=== PATIENT | female | born 1985 | race Caucasian/White ===

== ENCOUNTER 2018-07-26 15:34 | Emergency (ER) | payer OTHER, SELFPAY ==
[2018-07-26 15:42] VITALS: BP 123/87; PULSE 88; RESP 15; TEMP 36.6; O2SAT 99; BMI 33.9
--- NOTE | 2018-07-26 16:24 | ED.NAVMDI ---
HPI - Nausea/Vomiting/Diarrhea General Chief complaint: Nausea/Vomiting/Diarrhea Stated complaint: DIARRHEA 2 WKS WEAKNESS Time Seen by Provider: 07/26/18 16:24 Source: patient Mode of arrival: ambulatory Limitations: no limitations History of Present Illness HPI Narrative: 32-year-old nonsmoker presents with a chief complaint of 2 weeks of profuse watery diarrhea. She has become dizzy weak and lightheaded. She denies any fever chills nor blood in her stool. She denies any nausea or vomiting. She denies any recent travel, use of antibiotics, exposure to bad food or ill persons. She reports up to 5/6 explosive loose stools daily. She denies any history of the same MD complaint: diarrhea Onset (ago): day(s) Description of Diarrhea: watery Associated Abdominal Pain: No Severity: moderate Exacerbating factors: none Related Data Home Medications Medication Instructions Recorded Confirmed ibuprofen [Advil] 600 mg PO .ONCE 07/26/18 07/26/18 Previous Rx's Medication Instructions Recorded trazodone 50 mg tablet 50 mg PO HS #90 tab 04/15/18 sertraline 50 mg tablet 50 mg PO QDAY #90 tab 07/08/18 Allergies Allergy/AdvReac Type Severity Reaction Status Date / Time diphenhydramine Allergy Unknown Verified 07/26/18 15:42 [DIPHENHYDRAMINE] Review of Systems Review of Systems All systems reviewed & are unremarkable except as noted in HPI and below Constitutional Denies chills, Denies fever(s), Denies lethargy and Reports weakness Eyes Denies change in vision, Denies eye discharge, Denies irritation and Denies loss of vision ENT Ears, Nose, Mouth, and Throat: Denies change in voice, Denies neck pain and Denies sore throat Cardiovascular Denies chest pain, Denies irregular heart rhythm, Denies lightheadedness, Denies palpitations, Denies dyspnea, Denies dyspnea on exertion and Denies orthopnea Respiratory Denies cough, Denies dyspnea, Denies dyspnea on exertion and Denies wheezing Gastrointestinal Gastrointestinal: Denies abdominal pain, Denies change in bowel habits, Reports diarrhea, Denies nausea and Denies vomiting Genitourinary Denies hematuria, Denies flank pain, Denies urinary incontinence and Denies urinary urgency Musculoskeletal Denies neck pain Integumentary/Breasts Denies pruritus, Denies erythema, Denies rash and Denies wounds Neurologic Denies confusion, Denies loss of vision and Reports weakness Psychiatric Denies anxiety, Denies confusion, Denies depression, Denies homicidal ideation and Denies suicidal ideation Endocrine Denies palpitations Hematologic/Lymphatic Denies easy bruising Allergic/Immunologic Denies wheezing [facility] History Status post delivery (09/12/16) Family History Father Age: 60 Heart disease Social History Smoking Status: Current every day smoker Exam Narrative Exam Narrative: GENERAL: This is a well-nourished, well-developed patient, in mild distress. HEAD: Atraumatic. Normocephalic. No temporal or scalp tenderness. EYES: Pupils equal round and reactive. Extraocular motions intact. No scleral icterus. No injection or drainage. ENT: Nose without bleeding, purulent drainage or septal hematoma. Throat without erythema, tonsillar hypertrophy or exudate. Uvula midline. Airway patent. NECK: Trachea midline. No JVD or lymphadenopathy. Supple, nontender, no meningeal signs. CARDIOVASCULAR: Regular rate and rhythm without murmurs, gallops, or rubs. RESPIRATORY: Clear to auscultation. Breath sounds equal bilaterally. No wheezes, rales, or rhonchi. GASTROINTESTINAL: Abdomen soft, non-tender, nondistended. No hepato-splenomegaly, or palpable masses. No guarding. EXTREMITIES: No clubbing, cyanosis, or edema. No joint tenderness, effusion, or edema noted. BACK: Nontender without deformity or crepitance. No flank tenderness. NEURO: AOx3. SKIN: No rash or erythema. Initial Vital Signs Initial Vital Signs: Vital Signs Temperature 97.9 F 07/26/18 15:42 Pulse Rate 88 07/26/18 15:42 Respiratory Rate 15 07/26/18 15:42 Blood Pressure 123/87 07/26/18 15:42 Pulse Oximetry 99 07/26/18 15:42 Course Orders Ordered: ED Orders 07/26/18 16:46 Complete Blood Count AUTO DIFF Stat Comprehensive Metabolic Panel Stat Discontinued Medications Sodium Chloride (Normal Saline 0.9%) 1,000 mls @ 1,000 mls/hr IV BOLUS ONE Stop: 07/26/18 17:23 Last Admin: 07/26/18 16:45 Dose: 1,000 mls/hr Ondansetron HCl (Zofran) 4 mg IV NOW ONE Stop: 07/26/18 16:25 Last Admin: 07/26/18 17:31 Dose: Not Given Vital Signs - 8 hr 07/26/18 15:42 07/26/18 18:51 Temperature 97.9 F Pulse Rate 88 75 Respiratory Rate 15 14 Blood Pressure 123/87 Blood Pressure [Left Arm] 122/83 Pulse Oximetry 99 98 MDM - Nausea/Vomiting/Diarrhea Differential Diagnosis Likely traveler's diarrhea, food poisoning, gastroenteritis, clostridium difficile infection, drug-induced nausea and vomiting and dehydration Medical Records Attestation: I reviewed the patient's medical records. Lab Data Attestation: I reviewed the patient's lab results. Result diagrams: 07/26/18 16:46 07/26/18 16:46 Lab Results 07/26/18 07/26/18 Range/Units 16:46 16:46 WBC 11.5 H (4.5-11.0) X10^3/uL RBC 4.68 (4.0-5.2) X10^6/uL Hgb 13.0 (12.0-16.0) g/dL Hct 39.2 (36-46) % MCV 83.7 (80-100) fL MCH 27.8 (26-34) PG MCHC 33.2 (30-36) % RDW 14.3 (11.6-14.8) % Plt Count 285 (150-400) X10^3/uL Neut % (Auto) 62.3 (50-75) % Lymph % (Auto) 27.4 (25-40) % [place] % (Auto) 8.1 (3-14) % Eos % (Auto) 1.4 L (2-4) % Baso % (Auto) 0.8 (0-2) % Neut # (Auto) 7200 H (2252-9187) /uL Sodium 141 (137-145) mmol/L Potassium 3.9 (3.4-5.1) mmol/L Chloride 107 (98-107) mmol/L Carbon Dioxide 22 (22-32) mmol/L BUN 13 (7-17) mg/dL Creatinine 0.70 (0.52-1.04) mg/dL Estimated GFR > 60.0 (>60) mL/min BUN/Creatinine Ratio 18.6 (6-22) Glucose 92 (70-100) mg/dL Calcium 9.1 (8.4-10.2) mg/dL Total Bilirubin 0.3 (0.2-1.3) mg/dL AST 26 (14-36) IU/L ALT 39 (9-52) IU/L Alkaline Phosphatase 50 (38-126) U/L Total Protein 7.6 (6.3-8.2) g/dL Albumin 4.5 (3.5-5.0) g/dL Globulin 3.1 (1.7-4.1) g/dL Albumin/Globulin Ratio 1.5 (1.0-2.8) Urine Dip Bedside Urine Glucose Negative Bedside Urine Bilirubin - Negative Bedside Urine Ketone - Negative Urine Specific [place] 1.015 Bedside Urine Occult Blood - Negative Bedside Urine pH 6.5 Bedside Urine Urobilinogen - Negative Bedside Urine Nitrite - Negative Bedside Urine Leukocytes - Negative Esterase MDM Narrative Medical decision making narrative: C diff colitis considered as a possible etiology of her diarrhea however she produced no stool here in the department, had no fever or white count Given lack of ability to produce a specimen here, no white count, no fever, no blood, no recent travel or bad food the patient very unlikely has a diarrhea that would have a specific treatment. I did discuss with this patient the need to follow up with her primary provider to possibly obtain a stool culture for further characterization of her illness Discharge Plan Departure Patient Disposition: Home Clinical Impression: Diarrhea Discharge Date/Time: 07/26/18 18:58 Interventions: ED Discharge Assessment Last Done: 07/26/18 18:55 Instructions: Diarrhea Activity Restrictions/Additional Instructions: *You have been diagnosed with [ acute diarrhea] *What to do: * continue to take medications as directed *Follow up with your primary care provider in 2-3 days, call for an appointment. Let them know you were seen in the Emergency Department and that we ask that you be seen in follow up *Return to ER if you should have any new, worsening or concerning symptoms *Drink plenty of fluids with frequent small sips. *For the next 24 hours a clear liquid diet is advised. After that please employ a brat diet which would include bananas, rice, apples, toast. Prescriptions: No Action trazodone 50 mg tablet 50 mg PO HS Qty: 90 RF: 0 sertraline [Zoloft] 50 mg tablet 50 mg PO QDAY Qty: 90 RF: 0 ibuprofen [Advil] 200 mg Tablet 600 mg PO .ONCE RF: 0 Referrals: Estelita Barrera DO [Primary Care Provider] -
[2018-07-26] MEDS: SODIUM CHLORIDE 0.9% 1,000 ML 1000 ML IV (16:45)
[2018-07-26 16:57] LABS: Add Manual Diff / Slide Review NO; Basophils Percent Auto 0.8 % (0-2); Eosinophils Percent Auto 1.4 % (2-4); Hematocrit 39.2 % (36-46); Lymphocytes Percent Auto 27.4 % (25-40); Mean Corpuscular HGB Conc 33.2 % (30-36); Mean Corpuscular Hemoglobin 27.8 PG (26-34); Mean Corpuscular Volume 83.7 fL (80-100); Monocytes Percent Auto 8.1 % (3-14); Neutrophils Absolute Auto 7200 /uL (3000-5900); Neutrophils Percent Auto 62.3 % (50-75); Platelet Count 285 X10^3/uL (150-400); Red Blood Cell Count 4.68 X10^6/uL (4.0-5.2); Red Cell Distribution Width 14.3 % (11.6-14.8); White Blood Cell Count 11.5 X10^3/uL (4.5-11.0)
[2018-07-26 17:11] LABS: Alanine Aminotransferase 39 IU/L (9-52); Albumin 4.5 g/dL (3.5-5.0); Albumin Globulin Ratio 1.5 (1.0-2.8); Alkaline Phosphatase 50 U/L (38-126); Aspartate Aminotransferase 26 IU/L (14-36); BUN Creatinine Ratio 18.6 (6-22); Bilirubin Total 0.3 mg/dL (0.2-1.3); Blood Urea Nitrogen 13 mg/dL (7-17); Calcium 9.1 mg/dL (8.4-10.2); Carbon Dioxide 22 mmol/L (22-32); Chloride 107 mmol/L (98-107); Estimated Glomerular Filt Rate > 60.0 mL/min (>60); Globulin 3.1 g/dL (1.7-4.1); Glucose 92 mg/dL (70-100); HEMOLYSIS < 15 (0-50); Potassium 3.9 mmol/L (3.4-5.1); Sodium 141 mmol/L (137-145); Total Protein 7.6 g/dL (6.3-8.2)
[2018-07-26 18:51] VITALS: BP 122/83; PULSE 75; RESP 14; O2SAT 98
== END 2018-07-26 18:58 | disposition home or self-care (01) ==
PROVIDERS: Emergency Provider Emergency Medicine; Family Provider Family Medicine; PCP Family Medicine
DX: R19.7 Diarrhea, unspecified (principal)
CPT/HCPCS: 36591; 80053; 81003; 85025; 99282; 99284

== ENCOUNTER → 2018-11-29 16:36 | Outpatient (CLI) | payer OTHER, SELFPAY ==
--- NOTE | 2018-11-29 16:39 | DI.MRI.S_ITS ---
PROCEDURE: MR KNEE LT WO CON INDICATIONS: Left knee medial pain TECHNIQUE: Noncontrast sagittal PD fast spin echo and T2 fast spin echo with fat saturation, sagittal 3-D FLASH with fat saturation; coronal T1 spin echo and PD fast spin echo with fat saturation, and axial PD fast spin echo with fat saturation through the knee. COMPARISON: [facility], MR, KNEE WITHOUT CONTRAST, 08/30/2015, 7:40. [facility], CR, XR KNEE ARTHRITIC SERIES LT, 03/26/2018, 8:47. FINDINGS: Image quality: Excellent. Menisci: The medial and lateral menisci demonstrate normal morphology and internal signal. The meniscal root ligaments appear intact. Cruciate ligaments: Posterior cruciate ligament is intact. Posterior bowing of the anterior cruciate ligament has nearly resolved. Medial structures: The medial collateral ligament appears intact. Visualized portions of the pes anserinus tendons appear normal. No abnormal bursal fluid. Lateral structures: The lateral collateral ligament, long and short heads of the biceps femoris tendon appear intact. The popliteus tendon appears normal. Iliotibial band appears normal. Anterior structures: The quadriceps and patellar tendons appear intact. Patellar alignment is normal. No femoral trochlear dysplasia or ventral trochlear prominence. No edema in the infrapatellar fat pad. Bones and cartilage: No bone marrow contusions or fractures. Mild diffuse articular cartilage loss overlies the weightbearing aspects of the medial femoral condyle and medial tibial plateau. Joint space: There is a small knee joint effusion and a trace Diallo's cyst. Normal appearing synovial plicae are incidentally noted. IMPRESSION: 1. 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 2. Mild tricompartmental articular cartilage loss. 3. Small knee joint effusion. Trace Diallo's cyst. Dictated by: Rufus Pratt M.D. on 12/02/2018 at 8:43 Approved by: Rufus Pratt M.D. on 12/02/2018 at 8:48
== END ==
PROVIDERS: Family Provider Family Medicine; PCP Family Medicine; Visit Provider Orthopaedic Surgery
DX: S83.512A Sprain of anterior cruciate ligament of left knee, initial encounter (principal); M25.462 Effusion, left knee
CPT/HCPCS: 73721

== ENCOUNTER → 2018-12-31 10:00 | Outpatient (CLI) | payer OTHER, SELFPAY ==
[2018-12-31 11:21] LABS: Add Manual Diff / Slide Review NO; Basophils Absolute Auto 100 /uL (0-100); Basophils Percent Auto 0.7 % (0-2); Eosinophils Absolute Auto 100 /uL (0-450); Eosinophils Percent Auto 1.3 % (2-4); Hematocrit 39.8 % (36-46); Hemoglobin 13.4 g/dL (12.0-16.0); Lymphocytes Absolute Auto 3000 /uL (1100-4500); Lymphocytes Percent Auto 24.8 % (25-40); Mean Corpuscular HGB Conc 33.6 % (30-36); Mean Corpuscular Hemoglobin 28.5 PG (26-34); Mean Corpuscular Volume 84.7 fL (80-100); Monocytes Absolute Auto 700 /uL (0-900); Monocytes Percent Auto 6.3 % (3-14); Neutrophils Absolute Auto 8000 /uL (1500-7000); Neutrophils Percent Auto 66.9 % (50-75); Platelet Count 315 X10^3/uL (150-400); Red Cell Distribution Width 13.6 % (11.6-14.8); White Blood Cell Count 11.9 X10^3/uL (4.5-11.0)
[2018-12-31 12:05] LABS: Alanine Aminotransferase 44 IU/L (9-52); Albumin 4.4 g/dL (3.5-5.0); Albumin Globulin Ratio 1.4 (1.0-2.8); Alkaline Phosphatase 60 U/L (38-126); Aspartate Aminotransferase 25 IU/L (14-36); Bilirubin Total 0.2 mg/dL (0.2-1.3); Calcium 9.7 mg/dL (8.4-10.2); Carbon Dioxide 26 mmol/L (22-32); Chloride 104 mmol/L (98-107); Estimated Glomerular Filt Rate > 60.0 mL/min (>60); Globulin 3.1 g/dL (1.7-4.1); Glucose 101 mg/dL (70-100); HEMOLYSIS < 15 (0-50); Potassium 4.4 mmol/L (3.4-5.1); Sodium 139 mmol/L (137-145); Total Protein 7.5 g/dL (6.3-8.2)
[2018-12-31 12:21] LABS: BUN Creatinine Ratio 13.3 (6-22); Blood Urea Nitrogen 12 mg/dL (7-17)
[2018-12-31 15:01] LABS: Free T4, Direct Thyroxine 1.04 ng/dL (0.78-2.19)
[2018-12-31 15:15] LABS: Thyroid Stimulating Hormone 1.84 uIU/mL (0.47-4.68)
== END ==
PROVIDERS: PCP Family Medicine; Visit Provider Psychiatry & Neurology Psychiatry
DX: F32.9 Major depressive disorder, single episode, unspecified (principal)
CPT/HCPCS: 36415; 80053; 84439; 84443; 85025

== ENCOUNTER 2019-08-24 17:06 | Emergency (ER) | payer OTHER, SELFPAY ==
[2019-08-24 17:13] VITALS: TEMP 37.6
[2019-08-24 17:16] VITALS: BP 114/80; PULSE 94; RESP 20; O2SAT 100
--- NOTE | 2019-08-24 17:52 | DI.RAD.S_ITS ---
PROCEDURE: XR LUMBAR SPINE 2-3V INDICATIONS: lumbar pain TECHNIQUE: 3 views of the lumbar spine were acquired. COMPARISON: None. FINDINGS: Bones: 5 [id number] vertebrae are present. There is normal bony alignment. No vertebral body compression fractures. No suspicious bony lesions. Soft tissues: Overlying bowel gas pattern is normal. No suspicious soft tissue calcifications. An intrauterine device projects within the lower pelvis. IMPRESSION: Lumbar spine without acute radiographic abnormality. Dictated by: Juan Fitch M.D. on 08/24/2019 at 18:22 Approved by: Juan Fitch M.D. on 08/24/2019 at 18:23
[2019-08-24] MEDS: CYCLOBENZAPRINE 10 MG TABLET PO (18:03)
[2019-08-24] MEDS: KETOROLAC 60 MG/2 ML VIAL IM (18:07)
[2019-08-24 18:13] LABS: Bacteria Urine None Seen; WBC Urine None Seen (0-5/HPF)
[2019-08-24 18:20] VITALS: BP 128/94; PULSE 86; RESP 16; O2SAT 100
[2019-08-24 18:21] LABS: Amorphous Sediment Urine 3+; Culture Indicated Urine Cult Not Indicated; RBC Urine 0-1/HPF (0-5/HPF); Squamous Epithelial Cell Urine 1-5 /HPF (0-5/HPF)
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
[2019-08-24] MEDS: KETOROLAC 10MG PREPACK 1 BOTTLE MISC (19:27)
[2019-08-24] MEDS: CYCLOBENZAPRINE 10 MG PREPACK 1 BOTTLE MISC (19:27)
== END 2019-08-24 19:23 | disposition home or self-care (01) ==
PROVIDERS: Emergency Provider Nurse Practitioner Family; PCP Family Medicine
DX: M54.5 Low back pain (principal)
CPT/HCPCS: 72100; 81003; 81015; 96372; 99282; 99284; J1885

== ENCOUNTER → 2021-08-06 13:23 | Outpatient (CLI) | payer OTHER, SELFPAY ==
[2021-08-06 13:53] LABS: COVID19 -Nasal RAPID Negative (Negative)
== END ==
PROVIDERS: PCP Family Medicine; Visit Provider Nurse Practitioner Family
DX: Z20.822 Contact with and (suspected) exposure to COVID-19 (principal)
CPT/HCPCS: 87635

== ENCOUNTER → 2021-12-15 07:20 | Outpatient (CLI) | payer OTHER, SELFPAY ==
[2021-12-15 08:04] LABS: Alanine Aminotransferase 24 IU/L (<35); Albumin 4.4 g/dL (3.5-5.0); Albumin Globulin Ratio 1.4 (1.0-2.8); Alkaline Phosphatase 61 U/L (38-126); Aspartate Aminotransferase 21 IU/L (14-36); Bilirubin Total 0.4 mg/dL (0.2-1.3); Blood Urea Nitrogen 9 mg/dL (7-17); Calcium 8.9 mg/dL (8.4-10.2); Carbon Dioxide 22 mmol/L (22-32); Chloride 109 mmol/L (98-107); Estimated Glomerular Filt Rate > 60.0 mL/min (>60); Globulin 3.1 g/dL (1.7-4.1); Glucose 122 mg/dL (70-100); HEMOLYSIS < 15 (0-50); Potassium 3.9 mmol/L (3.4-5.1); Sodium 139 mmol/L (137-145); Total Protein 7.5 g/dL (6.3-8.2)
[2021-12-15 08:05] LABS: Lithium < 0.2 mmol/L (0.6-1.2)
== END ==
PROVIDERS: PCP Family Medicine; Referring Provider Psychiatry & Neurology Psychiatry; Visit Provider Psychiatry & Neurology Psychiatry
DX: F31.9 Bipolar disorder, unspecified (principal)
CPT/HCPCS: 36415; 80053; 80178

== ENCOUNTER → 2022-02-09 07:02 | Outpatient (CLI) | payer OTHER, SELFPAY ==
[2022-02-09 09:19] LABS: Lithium < 0.2 mmol/L (0.6-1.2)
[2022-02-09 21:11] LABS: Valproic Acid (Depakene) Total 22 ug/mL (50-100)
== END ==
PROVIDERS: PCP Family Medicine; Referring Provider Family Medicine; Visit Provider Psychiatry & Neurology Psychiatry
DX: F31.9 Bipolar disorder, unspecified (principal)
CPT/HCPCS: 36415; 80164; 80178

== ENCOUNTER → 2022-03-29 07:01 | Outpatient (CLI) | payer OTHER, SELFPAY ==
[2022-03-29 23:03] LABS: Valproic Acid (Depakene) Total 34 ug/mL (50-100)
== END ==
PROVIDERS: PCP Family Medicine; Referring Provider Psychiatry & Neurology Psychiatry; Visit Provider Psychiatry & Neurology Psychiatry
DX: F31.9 Bipolar disorder, unspecified (principal)
CPT/HCPCS: 36415; 80164

== ENCOUNTER → 2022-06-29 17:16 | Outpatient (CLI) | payer OTHER, SELFPAY ==
[2022-06-29 17:33] LABS: Pregnancy Test Urine Negative (Negative)
== END ==
PROVIDERS: PCP Family Medicine; Referring Provider Family Medicine; Visit Provider Family Medicine
DX: Z32.01 Encounter for pregnancy test, result positive (principal)
CPT/HCPCS: 81025

== ENCOUNTER → 2023-02-23 12:02 | Outpatient (CLI) | payer OTHER, SELFPAY ==
--- NOTE | 2023-02-23 | DI.MG.S_ITS ---
BILATERAL DIGITAL DIAGNOSTIC MAMMOGRAM 3D/2D: 02/23/2023 CLINICAL: Baseline. nipple discharge. No prior exams were available for comparison. Both breasts are heterogeneously dense, which may obscure small masses (category c / 51-75% glandular tissue). There is an oval focal asymmetry in the right breast at 11 o'clock middle depth. No other significant masses, calcifications, or other findings are seen in either breast. IMPRESSION: INCOMPLETE: NEEDS ADDITIONAL IMAGING EVALUATION The oval focal asymmetry in the right breast is indeterminate. A targeted ultrasound is recommended and will immediately follow. Based on the Tyrer Cuzick model (a risk assessment model) the patient's lifetime risk is 15.3% and her 10 year risk is 1.8%. According to the ACR, ACS, and NCCN guidelines, an annual breast MRI exam along with mammogram is recommended if the patient's lifetime risk is 20% or greater. This exam was interpreted at Station ID: [id number]. NOTE: For mammograms, a report in lay terms will be sent to the patient. Approximately 15% of breast malignancies will not be visualized mammographically. In the management of a palpable breast mass, a negative mammogram must not discourage biopsy of a clinically suspicious lesion. Electronically Signed By: Aakash Tavares M.D. slc/:02/23/2023 12:47:00 ACR BI-RADS Category 0: Incomplete [id number]
--- NOTE | 2023-02-23 | DI.US.S_ITS ---
LIMITED ULTRASOUND OF RIGHT BREAST: 02/23/2023 CLINICAL: Nipple discharge. Comparison is made to exam dated: 02/23/2023 mammogram - [facility]. Color flow and real-time ultrasound of the right breast 9-11 o'clock region were performed. James scale images of the real-time examination were reviewed. There is a 0.6 cm x 0.5 cm x 0.3 cm oval cyst in the right breast at 11 o'clock middle depth 3 cm from the nipple. This oval cyst is hypoechoic. This correlates with mammography findings. Color flow imaging demonstrates that there is no vascularity present. There also is a 0.5 cm x 0.3 cm x 0.2 cm oval cyst in the right breast at 9 o'clock middle depth 7 cm from the nipple. This oval cyst is hypoechoic with a well-defined boundary. This correlates as an incidental finding. Color flow imaging demonstrates that there is no vascularity present. IMPRESSION: PROBABLY BENIGN The 0.6 cm complicated cyst in the right breast at 11 o'clock middle depth is probably benign. The 0.5 cm complicated cyst in the right breast at 9 o'clock middle depth is probably benign. A follow-up mammogram and an ultrasound in 6 months is recommended to demonstrate stability. Exam findings were conveyed to the patient. Patient describes clear/greenish nipple discharge with expression with is typically benign. Patient is advised to monitor for significant change. Clinical follow-up as needed. This exam was interpreted at Station ID: [id number]. Electronically Signed By: Aakash Tavares M.D. slc/:02/23/2023 13:21:32 letter sent: Followup Recommended Ultrasound BI-RADS: 3 Probably benign
== END ==
LOC: MAMMO 12:03
PROVIDERS: PCP Registered Nurse; Referring Provider Registered Nurse; Visit Provider Registered Nurse
DX: N64.52 Nipple discharge (principal); R92.8 Other abnormal and inconclusive findings on diagnostic imaging of breast; N60.01 Solitary cyst of right breast
CPT/HCPCS: 76642; 77066; G0279

== ENCOUNTER 2023-08-07 16:54 | Emergency (ER) | payer OTHER, SELFPAY ==
[2023-08-07 16:58] VITALS: BP 149/112; PULSE 95; RESP 20; TEMP 37.1; O2SAT 97; BMI 39.9
--- NOTE | 2023-08-07 17:06 | DI.RAD.S_ITS ---
PROCEDURE: XR CHEST 1V INDICATIONS: chest pain TECHNIQUE: One view of the chest was acquired. COMPARISON: None. FINDINGS: Surgical changes and devices: None. Lungs and pleura: Lungs are clear. No pleural effusions or pneumothorax. Mediastinum: Mediastinal contours appear normal. Heart size is normal. Bones and chest wall: No suspicious bony lesions. Overlying soft tissues appear unremarkable. IMPRESSION: Portable chest within normal limits for age. Dictated by: Miranda Bruce M.D. on 08/07/2023 at 17:30 Approved by: Miranda Bruce M.D. on 08/07/2023 at 17:30
[2023-08-07] MEDS: ASPIRIN 81 MG CHEW TAB 324 MG PO (17:10)
[2023-08-07 17:24] LABS: Add Manual Diff / Slide Review NO; Basophils Absolute Auto 100 /uL (0-100); Basophils Percent Auto 1.3 % (0-2); Eosinophils Absolute Auto 100 /uL (0-450); Eosinophils Percent Auto 1.4 % (2-4); Hematocrit 42.4 % (36-46); Hemoglobin 14.6 g/dL (12.0-16.0); Lymphocytes Absolute Auto 3700 /uL (1100-4500); Lymphocytes Percent Auto 36.9 % (25-40); Mean Corpuscular HGB Conc 34.5 % (30-36); Mean Corpuscular Hemoglobin 29.2 PG (26-34); Mean Corpuscular Volume 84.6 fL (80-100); Monocytes Absolute Auto 800 /uL (0-900); Monocytes Percent Auto 8.5 % (3-14); Neutrophils Absolute Auto 5200 /uL (1500-7000); Neutrophils Percent Auto 51.9 % (50-75); Platelet Count 323 X10^3/uL (150-400); Red Blood Cell Count 5.01 X10^6/uL (4.0-5.2); Red Cell Distribution Width 12.9 % (11.6-14.8); White Blood Cell Count 9.9 X10^3/uL (4.5-11.0)
[2023-08-07 17:27] LABS: INR 1.1 (0.9-1.3); Prothrombin Time 12.1 SECONDS (10.1-12.7)
[2023-08-07 17:30] LABS: PTT Partial Thromboplastin Tim 31 SECONDS (26-36)
[2023-08-07 17:31] LABS: Alanine Aminotransferase 73 IU/L (<35); Albumin 4.8 g/dL (3.5-5.0); Albumin Globulin Ratio 1.5 (1.0-2.8); Alkaline Phosphatase 70 U/L (38-126); Aspartate Aminotransferase 37 IU/L (14-36); BUN Creatinine Ratio 13.6 (6-22); Bilirubin Total 0.6 mg/dL (0.2-1.3); Blood Urea Nitrogen 11 mg/dL (7-17); Calcium 9.6 mg/dL (8.4-10.2); Carbon Dioxide 22 mmol/L (22-32); Chloride 105 mmol/L (98-107); Creatine Kinase 127 U/L (30-135); Estimated Glomerular Filt Rate > 60 mL/min (>60); Globulin 3.3 g/dL (1.7-4.1); Glucose 100 mg/dL (70-100); HEMOLYSIS < 15 (0-50); Lipase 114 U/L (23-300); Magnesium 2.2 mg/dL (1.6-2.3); Potassium 3.9 mmol/L (3.4-5.1); Sodium 138 mmol/L (137-145); Total Protein 8.1 g/dL (6.3-8.2)
[2023-08-07 17:43] LABS: Troponin I < 0.012 ng/mL (0.01-0.034)
--- NOTE | 2023-08-07 18:38 | ED.CHESTPAIN ---
HPI - Chest Pain <Shen Dawkins PA-C - Last Filed: 08/07/23 19:02> General Chief Complaint: Chest Pain Stated Complaint: mid back to chest pain, lt arm also Time Seen by Provider: 08/07/23 18:38 Source: patient Mode of arrival: Ambulatory Limitations: no limitations History of Present Illness HPI narrative: 37-year-old female with past medical history anxiety, hypercholesterolemia presents to the ED with 1 day of pain between her shoulder blades radiating to her epigastric and lower chest. Patient states that she had a chiropractic appointment for a back adjustment yesterday. Patient denies fever, chills, shortness of breath, nausea, vomiting, lightheadedness, dizziness, syncope. Patient denies that the pain radiates. Patient states that the pain is alleviated by leaning back and efrain her shoulder blades together. No early cardiac deaths in the family. Patient states that she has severe anxiety and that her friend 2 weeks ago of a heart attack, which is why patient came into the ED to be evaluated. Related Data Previous Rx's Medication Instructions Recorded sodium sul 1.479 gram-potas ch See Rx Instructions PO PER PKG DIR 01/24/23 0.188 gram-magnes sul 0.225 gram #24 tabs tablet (Sutab) quetiapine 25 mg tablet 50 mg (2 x 25 mg) PO BEDTIME #180 02/28/23 tabs buspirone 15 mg tablet 15 mg PO TID #270 tabs 06/04/23 Allergies Allergy/AdvReac Type Severity Reaction Status Date / Time diphenhydramine Allergy Unknown Verified 08/07/23 17:03 [DIPHENHYDRAMINE] Review of Systems <Shen Dawkins PA-C - Last Filed: 08/07/23 19:02> Constitutional Constitutional: Denies chills, Denies fatigue, Denies fever(s), Denies frequent falls, Denies lethargy and Denies weakness Eyes Eyes: Denies change in vision, Denies eye discharge, Denies irritation and Denies loss of vision ENT Ears, Nose, Mouth, and Throat: Denies change in voice, Denies dizziness, Denies neck pain, Denies sore throat and Denies throat swelling Cardiovascular Cardiovascular: Reports chest pain, Denies irregular heart rhythm, Denies lightheadedness, Denies palpitations, Denies dyspnea, Denies dyspnea on exertion and Denies orthopnea Respiratory Respiratory: Denies cough, Denies dyspnea, Denies dyspnea on exertion and Denies wheezing Gastrointestinal Gastrointestinal: Denies abdominal pain, Denies change in bowel habits, Denies diarrhea, Denies nausea and Denies vomiting Musculoskeletal Musculoskeletal: Reports back pain, Denies neck pain and Denies numbness Integumentary/Breasts Skin/Breast: Denies pruritus, Denies erythema, Denies rash and Denies wounds Neurologic Neurologic: Denies behavioral changes, Denies confusion, Denies dizziness, Denies frequent falls, Denies loss of vision, Denies numbness and Denies weakness Psychiatric Psychiatric: Denies anxiety, Denies behavioral changes, Denies confusion, Denies depression, Denies homicidal ideation and Denies suicidal ideation Endocrine Endocrine: Denies fatigue, Denies flushing and Denies palpitations Hematologic/Lymphatic Hematologic/Lymphatic: Denies easy bruising Allergic/Immunologic Allergic/Immunologic: Denies urticaria, Denies throat swelling and Denies wheezing Patient History <Shen Dawkins PA-C - Last Filed: 08/07/23 19:02> Medical History Encounter for Depo-Provera contraception Encounter for IUD removal Sinusitis Surgical History Hx of tonsillectomy Status post delivery (09/12/16) Family History Father Age: 65 Heart disease Social History Smoking Status: Current every day smoker Smoking Status: Current every day smoker alcohol intake frequency: 0-2 drinks per day Substance Use Type: does not use Exam <Shen Dawkins PA-C - Last Filed: 08/07/23 19:02> Narrative Exam Narrative: Const General:?cooperative, healthy appearing and comfortable [facility] Head:?normal to inspection Ears:?hearing grossly normal bilaterally Nose:?external nose normal Face and sinus:?normal facial exam and sinuses nontender Mouth:?oral mucosae normal Throat:?posterior oropharynx normal Eyes General:?appearance normal, both eyes and all related structures Neck Neck:?normal visual inspection and no lymphadenopathy noted Resp Effort & Inspection:?normal respiratory effort Auscultation:?clear to auscultation bilaterally Cardio Rate:?regular rate Rhythm:?regular rhythm Neuro General:?patient alert, patient awake and patient oriented x3 Initial Vital Signs Initial Vital Signs: Vital Signs Temperature 98.7 F 08/07/23 16:58 Pulse Rate 95 H 08/07/23 16:58 Respiratory Rate 20 08/07/23 16:58 Blood Pressure 149/112 H 08/07/23 16:58 Pulse Oximetry 97 08/07/23 16:58 Oxygen Delivery Method Room Air 08/07/23 16:58 <Zohra Erickson DO - Last Filed: 08/07/23 23:36> Initial Vital Signs Initial Vital Signs: Vital Signs Temperature 98.7 F 08/07/23 16:58 Pulse Rate 95 H 08/07/23 16:58 Respiratory Rate 20 08/07/23 16:58 Blood Pressure 149/112 H 08/07/23 16:58 Pulse Oximetry 97 08/07/23 16:58 Oxygen Delivery Method Room Air 08/07/23 16:58 Course <Shen Dawkins PA-C - Last Filed: 08/07/23 19:02> Orders Ordered: ED Orders 08/07/23 17:00 Complete Blood Count AUTO DIFF Stat Comprehensive Metabolic Panel Stat Lipase Stat Magnesium Stat PTT Partial Thromboplastin Cuong Stat Prothrombin Time INR Stat Troponin & CK Cardiac Panel Stat 08/07/23 17:06 XR chest 1V Stat EKG-12 Lead Stat Discontinued Medications Aspirin (Aspirin 81 Mg Chew Tab) 324 mg PO NOW ONE Stop: 08/07/23 17:07 Last Admin: 08/07/23 17:10 Dose: 324 mg Documented By: KF Vital Signs Vital signs: Vital Signs - 8 hr 08/07/23 16:58 08/07/23 18:47 Temperature 98.7 F 98.1 F Pulse Rate 95 H 98 H Respiratory Rate 20 20 Blood Pressure 149/112 H 148/101 H Pulse Oximetry 97 95 Oxygen Delivery Method Room Air Room Air <Zohra Erickson DO - Last Filed: 08/07/23 23:36> Orders Ordered: ED Orders 08/07/23 17:00 Complete Blood Count AUTO DIFF Stat Comprehensive Metabolic Panel Stat Lipase Stat Magnesium Stat PTT Partial Thromboplastin Cuong Stat Prothrombin Time INR Stat Troponin & CK Cardiac Panel Stat 08/07/23 17:06 XR chest 1V Stat EKG-12 Lead Stat Discontinued Medications Aspirin (Aspirin 81 Mg Chew Tab) 324 mg PO NOW ONE Stop: 08/07/23 17:07 Last Admin: 08/07/23 17:10 Dose: 324 mg Documented By: GISELA Vital Signs Vital signs: Vital Signs - 8 hr 08/07/23 16:58 08/07/23 18:47 Temperature 98.7 F 98.1 F Pulse Rate 95 H 98 H Respiratory Rate 20 20 Blood Pressure 149/112 H 148/101 H Pulse Oximetry 97 95 Oxygen Delivery Method Room Air Room Air MDM - Chest Pain <Shen Dawkins PA-C - Last Filed: 08/07/23 19:02> Lab Data 08/07/23 17:00 08/07/23 17:00 Labs: Lab Results 08/07/23 Range/Units 17:00 WBC 9.9 (4.5-11.0) X10^3/uL RBC 5.01 (4.0-5.2) X10^6/uL Hgb 14.6 (12.0-16.0) g/dL Hct 42.4 (36-46) % MCV 84.6 (80-100) fL MCH 29.2 (26-34) PG MCHC 34.5 (30-36) % RDW 12.9 (11.6-14.8) % Plt Count 323 (150-400) X10^3/uL Neut % (Auto) 51.9 (50-75) % Lymph % (Auto) 36.9 (25-40) % Hartley % (Auto) 8.5 (3-14) % Eos % (Auto) 1.4 L (2-4) % Baso % (Auto) 1.3 (0-2) % Neut # (Auto) 5200 (3980-0859) /uL Lymph # (Auto) 3700 (4704-8907) /uL Hartley # (Auto) 800 (0-900) /uL Eos # (Auto) 100 (0-450) /uL Baso # (Auto) 100 (0-100) /uL PT 12.1 (10.1-12.7) SECONDS INR 1.1 (0.9-1.3) APTT 31 (26-36) SECONDS Sodium 138 (137-145) mmol/L Potassium 3.9 (3.4-5.1) mmol/L Chloride 105 (98-107) mmol/L Carbon Dioxide 22 (22-32) mmol/L BUN 11 (7-17) mg/dL Creatinine 0.81 (0.52-1.04) mg/dL Estimated GFR > 60 (>60) mL/min BUN/Creatinine Ratio 13.6 (6-22) Glucose 100 (70-100) mg/dL Calcium 9.6 (8.4-10.2) mg/dL Magnesium 2.2 (1.6-2.3) mg/dL Total Bilirubin 0.6 (0.2-1.3) mg/dL AST 37 H (14-36) IU/L ALT 73 H (<35) IU/L Alkaline Phosphatase 70 (38-126) U/L Total Creatine Kinase 127 (30-135) U/L Troponin I < 0.012 (0.01-0.034) ng/mL Total Protein 8.1 (6.3-8.2) g/dL Albumin 4.8 (3.5-5.0) g/dL Globulin 3.3 (1.7-4.1) g/dL Albumin/Globulin Ratio 1.5 (1.0-2.8) Lipase 114 (23-300) U/L MDM Narrative Medical decision making narrative: 37-year-old female with past medical history anxiety, hypercholesterolemia presents to the ED with 1 day of pain between her shoulder blades radiating to her epigastric and lower chest. Concern for ACS versus musculoskeletal sprain/strain versus pneumonia versus other. Obtained EKG, chest x-ray, labs, troponin. EKG was normal sinus rhythm, no acute ST-T changes. Chest x-ray without acute findings. Labs and troponin within normal limits. Heart score 3, safe for discharge home. Recommend follow-up with PCP as soon as possible. ED return precautions discussed with patient. Patient verbalized understanding. Medical records reviewed: Yes <Zohra Erickson DO - Last Filed: 08/07/23 23:36> Lab Data Labs: Lab Results 08/07/23 Range/Units 17:00 WBC 9.9 (4.5-11.0) X10^3/uL RBC 5.01 (4.0-5.2) X10^6/uL Hgb 14.6 (12.0-16.0) g/dL Hct 42.4 (36-46) % MCV 84.6 (80-100) fL MCH 29.2 (26-34) PG MCHC 34.5 (30-36) % RDW 12.9 (11.6-14.8) % Plt Count 323 (150-400) X10^3/uL Neut % (Auto) 51.9 (50-75) % Lymph % (Auto) 36.9 (25-40) % Hartley % (Auto) 8.5 (3-14) % Eos % (Auto) 1.4 L (2-4) % Baso % (Auto) 1.3 (0-2) % Neut # (Auto) 5200 (1004-6795) /uL Lymph # (Auto) 3700 (1072-3367) /uL Hartley # (Auto) 800 (0-900) /uL Eos # (Auto) 100 (0-450) /uL Baso # (Auto) 100 (0-100) /uL PT 12.1 (10.1-12.7) SECONDS INR 1.1 (0.9-1.3) APTT 31 (26-36) SECONDS Sodium 138 (137-145) mmol/L Potassium 3.9 (3.4-5.1) mmol/L Chloride 105 (98-107) mmol/L Carbon Dioxide 22 (22-32) mmol/L BUN 11 (7-17) mg/dL Creatinine 0.81 (0.52-1.04) mg/dL Estimated GFR > 60 (>60) mL/min BUN/Creatinine Ratio 13.6 (6-22) Glucose 100 (70-100) mg/dL Calcium 9.6 (8.4-10.2) mg/dL Magnesium 2.2 (1.6-2.3) mg/dL Total Bilirubin 0.6 (0.2-1.3) mg/dL AST 37 H (14-36) IU/L ALT 73 H (<35) IU/L Alkaline Phosphatase 70 (38-126) U/L Total Creatine Kinase 127 (30-135) U/L Troponin I < 0.012 (0.01-0.034) ng/mL Total Protein 8.1 (6.3-8.2) g/dL Albumin 4.8 (3.5-5.0) g/dL Globulin 3.3 (1.7-4.1) g/dL Albumin/Globulin Ratio 1.5 (1.0-2.8) Lipase 114 (23-300) U/L ECG Data Attestation: I personally reviewed and interpreted this ECG as follows: Prior ECG tracings: not available for review Interpretation: Sinus rhythm rate of 90 HI 182 QRS 84 QTC 440. No acute ST elevation depression. No priors available for review. Discharge Plan Departure Patient Disposition: Home Clinical Impression: Atypical chest pain Instructions: DI for Atypical Chest Pain Activity Restrictions/Additional Instructions: You were evaluated in the ED today for some back and chest pain. Your labs, EKG, chest x-ray were normal. Your symptoms are most consistent with a musculoskeletal sprain/strain of the back, and it appears that pain is resolved with Motrin. You may continue to take Motrin or Tylenol for the discomfort. Please follow-up with your PCP as soon as possible. Return to the ED if you have worsening symptoms, chest pain, shortness of breath. Prescriptions: No Action quetiapine 25 mg tablet 50 mg PO BEDTIME Qty: 180 3RF buspirone 15 mg tablet 15 mg PO TID Qty: 270 3RF Sutab 1.479-0.188- 0.225 gram tablet See Rx Instructions PO PER PKG DIR Qty: 24 0RF Rx Instructions: Take as directed by Physician Referrals: Virginia Prasad, [employer]ICE [Primary Care Provider] - Stand Alone Forms: Patient Portal/API ED Sign-out <Zohra Erickson DO - Last Filed: 08/07/23 23:36> Cosign ED Attending Antonio Attestation: I was immediately available in the department for consultation.
[2023-08-07 18:47] VITALS: BP 148/101; PULSE 98; RESP 20; TEMP 36.7; O2SAT 95
== END 2023-08-07 18:59 | disposition home or self-care (01) ==
PROVIDERS: Emergency Medicine; Emergency Provider Student in an Organized Health Care Education/Training Program; PCP Registered Nurse
DX: R07.89 Other chest pain (principal); R10.13 Epigastric pain; F41.9 Anxiety disorder, unspecified
CPT/HCPCS: 36415; 71045; 80053; 82550; 83690; 83735; 84484; 85025; 85610; 85730; 93005; 93010; 99283; 99284

== ENCOUNTER → 2024-01-25 13:36 | Outpatient (CLI) | payer OTHER, SELFPAY ==
--- NOTE | 2024-01-25 13:37 | DI.ECHO.S_ITS ---
[facility] : : [address] : : [place] : : [address] : : Phone: [phone] Echocardiogram Report + + :Name: YASMEEN CUNNINGHAM Study Date: 01/25/2024 Height: 66 in : :Hospital ReadingLocation: Weight: 205 lb : : Gender: Female BSA: 2.0 m2 : :: 1985 Age: 38 yrs BP: 143/102 mmHg: :Reason For Study: CHEST PAIN : :Ordering Physician: RITA, : :ESTHER Performed By: Wilber Villanueva : :Referring: ESTHER BRUNSON : + + Interpretation Summary 1) Normal left ventricular thickness, size, wall motion, and systolic function (EF 60-65%). 2) Normal right ventricular size and function. 3) No significant valvular abnormalities. 4) No prior Echo available for comparison. Procedure: A two-dimensional transthoracic echocardiogram with color flow and Doppler was performed. The study quality was technically adequate. There is no prior echocardiogram noted for this patient. The patient was in normal sinus rhythm during the exam. The heart rate ranged between 88-108 bpm during the study. Left Ventricle: The left ventricle is normal in size and wall thickness. The ejection fraction is estimated to be 60-65%. Left ventricular systolic function appears normal without focal wall motion abnormalities. Diastolic parameters suggest probable normal left ventricular diastolic function and normal filling pressures. Right Ventricle: The right ventricle is not well visualized. The right ventricle grossly appears normal in size with probable normal systolic function. Atria: The left atrial size is normal. Right atrial size is normal. The interatrial septum grossly appears intact with no obvious evidence for an atrial septal defect. Mitral Valve: The mitral valve is normal in structure and function. There is no mitral valve stenosis. There is no mitral regurgitation noted. Aortic Valve: The aortic valve is trileaflet. There is no aortic valve stenosis. No aortic regurgitation is present. Tricuspid Valve: The tricuspid valve is normal in structure and function. There is no tricuspid stenosis. No tricuspid regurgitation. Pulmonary artery pressures cannot be estimated because of the lack of a measurable TR jet velocity. Pulmonic Valve: The pulmonic valve is not well visualized. There is no pulmonic valvular stenosis. There is no pulmonic valvular regurgitation. Great Vessels: The aortic root is normal size. The dimensions of the ascending aorta are normal. The IVC is of normal diameter and collapses greater than 50% with a sniff. This suggests a low right atrial pressure of 3 mm Hg. Pericardium/ Pleura There is no pericardial effusion. There is no pleural effusion. MMode/2D Measurements & Calculations LVIDd: 4.1 cm LVOT diam: 2.2 cm LVIDs: 2.9 cm Ao root diam: 3.1 cm FS: 29.3 % asc Aorta Diam: 3.3 cm IVSd: 1.1 cm Ao Arch Diam (Prox Trans): 2.4 cm LVPWd: 0.89 cm LV coulter. diameter/BSA (cm/m^2): 2.0 LV sys. diameter/BSA (cm/m^2): 1.4 LA A2 area: 18.0 cm2 RA long axis: 5.1 cm LA A4 area: 13.7 cm2 RA area: 12.0 cm2 LA length (vol): 4.3 cm RA vol: 24.3 ml LA vol: 48.9 ml RA : 12.0 ml/m2 LA vol index: 24.2 ml/m2 IVC diam: 1.4 cm TAPSE: 2.1 cm Doppler Measurements & Calculations Ao V2 max: 130.7 cm/sec LVOT Max Federico: 112.1 cm/sec Ao V2 mean: 85.1 cm/sec LV V1 max P.0 mmHg Ao max P.8 mmHg LV V1 VTI: 20.3 cm Ao mean P.3 mmHg BEBA(I,D): 3.8 cm2 Ao V2 VTI: 21.4 cm BEBA(V,D): 3.4 cm2 sev ratio: 0.95 BEBA indexed to BSA (cm^2/m^2): 1.9 MV E max federico: 72.9 cm/sec PA V2 max: 142.7 cm/sec MV A max federico: 82.3 cm/sec PA V2 mean: 104.6 cm/sec MV E/A: 0.89 PA mean P.7 mmHg Med Peak E' Federico: 6.3 cm/sec PA pr(Accel): 37.9 mmHg E/E' med: 11.6 Lat Peak E' Federico: 10.7 cm/sec E/E' lat: 6.8 E/e' average: 9.2 MV dec time: 0.16 sec SV(LVOT): 80.6 ml Reading Physician:05:07 PM
--- NOTE | 2024-01-25 13:38 | DI.US.S_ITS ---
PROCEDURE: US ABD AORTA ANEURYSM SCREEN INDICATIONS: Chest pain Family history ischemic heart disease TECHNIQUE: Real-time scanning was performed of the aorta and proximal common iliac arteries, with image documentation. COMPARISON: None. FINDINGS: Aorta: Abdominal aorta is normal in caliber throughout its length. Proximal abdominal aorta: 2.2 cm Mid abdominal aorta: 1.9 cm Distal abdominal aorta: 1.8 cm Iliacs: Proximal common iliac arteries are normal in caliber. Right common iliac artery 1.0 cm. Left common iliac artery 1.0 cm. IMPRESSION: 1. No evidence for abdominal aortic annular Dictated by: Nomi Alonso M.D. on 01/25/2024 at 17:11 Approved by: Nomi Alonso M.D. on 01/25/2024 at 17:13
--- NOTE | 2024-01-28 21:28 | DI.NM.S_ITS ---
DATE OF SERVICE: 01/25/2024 PROCEDURE: Exercise treadmill stress test without imaging. ORDERING PROVIDER: Chavez Brunson MD. INDICATIONS: The patient is a 37-year-old female with atypical back, chest, and epigastric discomfort. FINDINGS: 1. The patient was able to exercise for 7 minutes and 6 seconds on a standard Jose Cruz protocol suggesting moderately reduced exercise capacity with an BENITA of +20%, achieving 10.1 METS. 2. She had a normal heart rate and blood pressure response to exercise, achieving a maximum heart rate of 174 BPM (97% of her predicted maximum). 3. She had no chest discomfort or other anginal symptoms. 4. Her resting ECG showed sinus rhythm with poor R-wave progression, but normal ST segments. With stress, there were no significant ST- segment shifts or arrhythmias. IMPRESSION: 1. Normal exercise treadmill stress test for ischemia. 2. Moderately reduced exercise capacity without angina or arrhythmias. Flavio Pringleica - INDY/alexa/LUIS doc#: [id number]/job#: [id number] dd: 01/28/2024 13:04:00 dt: 01/28/2024 21:14:00 DICTATING MD/COPIES TO: David Burt MD; Chavez Brunson MD COPIES MNE: PASCUAL;
== END ==
PROVIDERS: PCP Registered Nurse; Referring Provider Internal Medicine Cardiovascular Disease; Visit Provider Internal Medicine Cardiovascular Disease
DX: R07.9 Chest pain, unspecified (principal); R06.09 Other forms of dyspnea; Z82.49 Family history of ischemic heart disease and other diseases of the circulatory system
CPT/HCPCS: 76706; 93017; 93306

== ENCOUNTER → 2024-06-11 08:40 | Outpatient (CLI) | payer OTHER, SELFPAY ==
--- NOTE | 2024-06-11 08:41 | DI.MG.S_ITS ---
BILATERAL DIGITAL DIAGNOSTIC MAMMOGRAM 3D/2D SHORT-TERM FOLLOW-UP: 06/11/2024 CLINICAL: Short term follow up of the right breast, due for bilateral imaging. Comparison is made to exam dated: 02/23/2023 mammogram - [facility]. The breasts are heterogeneously dense, which may obscure small masses (category c / 51-75% glandular tissue). Mammograms are stable. There is a oval focal asymmetry in the right breast at 11 o'clock middle depth. This is seen in additional views, is stable, and corersponds to the complicated cyst demonstrated by prior ultrasound. No other significant masses, calcifications, or other findings are seen in either breast. IMPRESSION: INCOMPLETE: NEED ADDITIONAL IMAGING EVALUATION Bilateral mammograms are stable. The asymmetry in the right breast most likely is a complicated cyst and is stable. An ultrasound is recommended to confirm stability. The previously seen incidental complicated cyst on prior ultrasound was not identified on mammogram. This will also be evaluated by ultrasound. This was performed immediately following this exam. Based on the Tyrer Cuzick model (a risk assessment model) the patient's lifetime risk is 15.6% and her 10 year risk is 2.0%. According to the ACR, ACS, and NCCN guidelines, an annual breast MRI exam along with mammogram is recommended if the patient's lifetime risk is 20% or greater. This exam was interpreted at Station ID: [id number]. NOTE: For mammograms, a report in lay terms will be sent to the patient. Approximately 15% of breast malignancies will not be visualized mammographically. In the management of a palpable breast mass, a negative mammogram must not discourage biopsy of a clinically suspicious lesion. Electronically Signed By: Miranda cartagena/:06/11/2024 09:19:45 ACR BI-RADS Category 0: Incomplete: Need Additional Imaging Evaluation [id number]
--- NOTE | 2024-06-11 08:42 | DI.US.S_ITS ---
LIMITED ULTRASOUND OF RIGHT BREAST: 06/11/2024 CLINICAL: Patient returns today to evaluate two focal asymmetries in the right breast. Comparison is made to exams dated: 06/11/2024 mammogram, 02/23/2023 ultrasound, and 02/23/2023 mammogram - [facility]. Color flow ultrasound of the right breast 9 o'clock and 11 o'clock regions was performed. James scale images of the real-time examination were reviewed. There is a 0.8 cm x 0.5 cm x 0.3 cm oval cyst in the right breast at 11 o'clock middle depth 3 cm from the nipple. This oval cyst is hypoechoic with a well-defined boundary. This finding has slightly elongated, but morphology is not significantly changed and correlates with mammography findings. Color flow imaging demonstrates that there is no vascularity present. There also is a 0.6 cm x 0.3 cm x 0.3 cm oval cyst in the right breast at 9 o'clock middle depth 7 cm from the nipple. This oval cyst is hypoechoic with a well-defined boundary. This abnormality is not significantly changed and correlates as an incidental finding. Color flow imaging demonstrates that there is no vascularity present. IMPRESSION: PROBABLY BENIGN The 0.8 cm x 0.5 cm x 0.3 cm oval cyst in the right breast at 11 o'clock middle depth corresponds to the mammogram finding, and is a probably benign complicated cyst. The 0.6 cm x 0.3 cm x 0.3 cm oval cyst in the right breast at 9 o'clock middle depth is consistent with a complicated cyst and is also probably benign. A follow-up right ultrasound in 12 months is recommended. The patient will be due for bilateral mammograms at that same visit. Findings and recommendations were conveyed to the patient at time of exam. This exam was interpreted at Station ID: [id number]. Electronically Signed By: Miranda cartagena/:06/11/2024 10:07:39 letter sent: Followup Recommended ACR BI-RADS Category 3: Probably Benign [id number]
== END ==
LOC: MAMMO 08:41
PROVIDERS: PCP Registered Nurse; Referring Provider Registered Nurse; Visit Provider Registered Nurse
DX: R92.8 Other abnormal and inconclusive findings on diagnostic imaging of breast (principal); R92.333 Mammographic heterogeneous density, bilateral breasts; N60.01 Solitary cyst of right breast
CPT/HCPCS: 76642; 77066; G0279

== ENCOUNTER → 2024-12-21 11:38 | Outpatient (CLI) | payer OTHER, SELFPAY | PROVIDERS: PCP Registered Nurse; Visit Provider Registered Nurse | DX: J02.9 Acute pharyngitis, unspecified (principal) | CPT/HCPCS: 87070 ==

== ENCOUNTER → 2025-09-01 08:35 | Outpatient (CLI) | payer OTHER, SELFPAY ==
--- NOTE | 2025-09-01 08:36 | DI.US.S_ITS ---
MM diagnostic mammo BI, US breast RT limited: 09/01/2025 BI-RADS: 2 CLINICAL: 40-year old female for bilateral diagnostic mammogram and right diagnostic breast ultrasound. The patient presents for a follow-up. Tyrer-Cuzick lifetime risk of 14.9%. No personal or first-degree family history of breast cancer. PRIOR EXAMS 06/11/2024, 02/23/2023. MAMMOGRAPHY TECHNIQUE: 2D and 3D (tomosynthesis) digital mammographic views obtained, with additional images as needed for full coverage. Current study was also evaluated with a Computer Aided Detection (CAD) system. ULTRASOUND TECHNIQUE Real-time vail scale and color doppler imaging of the area of clinical interest was performed with image documentation. TARGETED Right Breast Ultrasound: Real-time ultrasound exam was performed focused to area of clinical and/or imaging concern. DENSITY C. The breasts are heterogeneously dense, which may obscure small masses. MAMMOGRAPHY FINDINGS Right: Upper Outer at 11:00, Middle depth: Correlating with prior imaging concern, there is a stable focal asymmetry present. This finding has demonstrated two years of stability and is consistent with a benign etiology. Left: No suspicious mass, asymmetry, microcalcification, or other abnormality seen. ULTRASOUND FINDINGS Right: Outer at 9:00, 7 cm from nipple, measuring 0.2 x 0.3 x 0.3 cm - previously measuring (06/11/2024) 0.6 x 0.3 x 0.3 cm: Correlating with prior imaging concern simple anechoic cyst that has decreased in size. Doppler shows no vascularity. Right: Outer at 9:00, 2 cm from nipple: There is a dilated duct containing echogenic material. Doppler shows no vascularity. This is an incidental finding. Right: Upper Outer at 11:00, 3 cm from nipple: The previously seen cyst is no longer visualized. IMPRESSION: Right * No evidence of malignancy with benign findings. Left * No evidence of malignancy. RECOMMENDATIONS Bilateral * Annual screening mammography. COMMENTS: Findings and recommendations were conveyed to the patient during today's evaluation. OVERALL ASSESSMENT CATEGORY BI-RADS-2: Benign. [employer] recommends annual screening mammography beginning at age 40 for women with average risk of breast cancer. ELECTRONICALLY SIGNED: Felisha Gerard M.D. on 09/01/2025 at 01:50:43 PM PT Interpreting Station ID: [id number]
== END ==
LOC: MAMMO 08:36
PROVIDERS: PCP Registered Nurse; Referring Provider Registered Nurse; Visit Provider Registered Nurse
DX: R92.8 Other abnormal and inconclusive findings on diagnostic imaging of breast (principal); N60.01 Solitary cyst of right breast; N64.89 Other specified disorders of breast
CPT/HCPCS: 76642; 77066; G0279